=== PATIENT | female | born 1955 | race Caucasian/White ===

== ENCOUNTER 2017-03-28 19:27 | Emergency (ER) | payer MEDICARE ==
[~2017-03-28] VITALS: Ht 172.7 cm; Wt 98.0 kg
[~2017-03-28 19:27] MED LIST: ARICEPT10 MG PO; C 500 PO; CYMBALTA30 MG OR; DETROL LA4 MG PO; LORAZEPAM0.5 MG PO; LUNESTA3 MG OR; METHYLIN ER10 MG PO
[2017-03-28] MEDS ORDERED: REMERON15 MG PO (20:04)
[2017-03-28] MEDS ORDERED: LORTAB 10-325 M1 TAB PO (20:54)
[2017-03-28 21:13] VITALS: BP 127/60
== END 2017-03-28 21:13 | disposition home or self-care (01) ==
LOC: ED 19:27
PROC: 2W3DX1Z Immobilization of Left Lower Arm using Splint (ICD-10-PCS; principal; 2017-03-28)
DX: S52.502A Unspecified fracture of the lower end of left radius, initial encounter for closed fracture (principal); S00.81XA Abrasion of other part of head, initial encounter; S80.212A Abrasion, left knee, initial encounter; S80.211A Abrasion, right knee, initial encounter; S60.812A Abrasion of left wrist, initial encounter; W18.30XA Fall on same level, unspecified, initial encounter; Y93.K1 Activity, walking an animal; Y92.239 Unspecified place in hospital as the place of occurrence of the external cause

== ENCOUNTER 2018-11-28 09:00 | Outpatient (RCR) | payer MEDICARE, MEDICAID ==
--- NOTE | 2018-11-02 13:50 | NUR ---
Pt. in for IOP and Treatment Team. Pt. is clean and neat. Alert and oriented times 3. Affect is mildly bright. Mood is "good for the most part". Pt. denies any suicidal ideation. Pt. states she is taking Melatonin which helps her sleep. Pt. states she is eating better. Pt. states she has been off her thyroid medicine. Pt. states she didn't know she "is on the medicine for life". Kenroy Camargo APRN is requesting the Pt.'s TSH report. Program Nurse will follow up with the PCP. Pt. states she is "really benefiting from the program". Pt. states she is compliant with her medications. Pt. reports no changes in her medications. Pt. is to continue with the current treatment plan. Pt. is attending IOP 3 times a week with monthly 1:1. Will follow up in one month. Treatment team is completed.
[2018-11-05 12:40] VITALS: BP 118/62
[~2018-11-28 09:00] MED LIST changes: +D3-50 PO; +GNP MELATONIN MA5 MG PO; +LEVOTHYROXIN25 MC1 PO; +LORTAB 10-325 M1 TAB PO; +NATURE THROI PO; +REMERON15 MG PO; +ZOLOFT100 MG PO
== END 2018-11-29 23:59 | disposition still patient (30) ==
LOC: SLIP3 09:00
PROVIDERS: ATTEND Specialist
DX: F33.1 Major depressive disorder, recurrent, moderate (principal); F41.1 Generalized anxiety disorder

== ENCOUNTER 2019-08-28 19:41 | Emergency (ER) | payer MEDICARE ==
[~2019-08-28] VITALS: Ht 172.7 cm; Wt 82.7 kg
[~2019-08-28 19:41] MED LIST changes: +MEMANTINE HCL5 MG PO
[2019-08-28] MEDS ORDERED: ZOVIRAX52 TOP (20:54)
[2019-08-28] MEDS ORDERED: (None)3.5 GM OS (20:54)
[2019-08-28] MEDS ORDERED: VALTREX1 GM PO (20:54)
[2019-08-28] MEDS ORDERED: GENTAMICIN SULF5 ML OS (20:54)
[2019-08-28] MEDS ORDERED: FOSAMAX PLUS PO (21:03)
[2019-08-28 21:10] VITALS: BP 149/80
== END 2019-08-28 21:10 | disposition home or self-care (01) ==
LOC: ED 19:41
DX: B02.9 Zoster without complications (principal); F03.90 Unspecified dementia, unspecified severity, without behavioral disturbance, psychotic disturbance, mood disturbance, and anxiety

== ENCOUNTER 2021-01-18 11:25 | Observation (INO) | payer MEDICARE ==
[~2021-01-18] VITALS: Ht 172.7 cm; Wt 80.0 kg
[~2021-01-18 11:25] MED LIST changes: +(None)3.5 GM OS; +FOSAMAX PLUS PO; +GENTAMICIN SULF5 ML OS; +MEMANTINE HYDROC5 MG PO; +VALTREX1 GM PO; +VITAMI17 PO; +VITAMIN D PO; +ZOVIRAX52 TOP
[2021-01-18] MEDS ORDERED: DITROPAN5 MG/TA1 PO (11:43)
[2021-01-18] MEDS ORDERED: DIVALPROEX SOD250 MG PO (11:44)
[2021-01-18 11:58] LABS: HEMATOCRIT 40.7 % (37.0-47.0); HEMOGLOBIN 12.9 g/dl (12.0-16.0); IMMATURE GRANULOCYTES 0.6 % (0.0-5.0); MEAN CELL VOLUME 91.9 fL CALC (80.0-100.0); MEAN CORPUSCULAR HGB 29.1 pG CALC (26.0-32.0); MEAN CORPUSCULAR HGB CONC 31.7 g/dL CAL (32.0-36.0); NEUT# 4.31 thou/uL (2.00-7.15); RED BLOOD COUNT 4.43 mill/uL (4.20-5.60); RED CELL DISTRI WIDTH 14.1 % (11.5-15.5)
[2021-01-18 12:21] LABS: ALKALINE PHOSPHATASE 49 u/l (38-126); ANION GAP 9 (6-22 (CALC)); BILIRUBIN, TOTAL 0.5 mg/dL (0.0-1.4); BUN 22 mg/dL (8-23); BUN/CREATININE RATIO 25 (12-20 (CALC)); CARBON DIOXIDE 32 mmol/l (22-30); CHLORIDE 100 mmol/l (95-108); CREATININE 0.9 mg/dL (0.5-1.0); GFR > 60 ML/MIN (>=60 (CALC)); GFR FOR AFR.AMER. > 60 ML/MIN (>=60 (CALC)); POTASSIUM 4.1 mmol/l (3.5-5.1); PROTHROMBIN TIME 9.8 SECONDS (9.0-12.5); SGOT/AST 19 u/l (9-36); SODIUM 137 mmol/l (137-146)
[2021-01-18 12:44] LABS: URINE BILIRUBIN - DIPSTICK NEGATIVE (NEGATIVE); URINE BLOOD DIPSTICK NEGATIVE (NEGATIVE); URINE COLOR YELLOW; URINE GLUCOSE - DIPSTICK NEGATIVE (NEGATIVE); URINE KETONE TRACE mg/dL (NEGATIVE); URINE LEUK ESTERASE NEGATIVE (NEGATIVE); URINE NITRITE - DIPSTICK NEGATIVE (Negative); URINE PROTEIN - DIPSTICK NEGATIVE (NEG-TRACE); URINE UROBILINOGEN - DIPSTICK 0.2 E.U./dL (0.2)
[2021-01-18 14:54] VITALS: BP 119/70
[2021-01-18 19:00] VITALS: BP 120/64
[2021-01-19] VITALS: BP 129/69
[2021-01-19 04:30] VITALS: BP 130/72
[2021-01-19 05:36] LABS: HEMATOCRIT 37.6 % (37.0-47.0); HEMOGLOBIN 11.8 g/dl (12.0-16.0); MEAN CELL VOLUME 92.6 fL CALC (80.0-100.0); MEAN CORPUSCULAR HGB 29.1 pG CALC (26.0-32.0); MEAN CORPUSCULAR HGB CONC 31.4 g/dL CAL (32.0-36.0); RED BLOOD COUNT 4.06 mill/uL (4.20-5.60); RED CELL DISTRI WIDTH 14.2 % (11.5-15.5)
[2021-01-19 05:58] LABS: ANION GAP 9 (6-22 (CALC)); BUN 19 mg/dL (8-23); BUN/CREATININE RATIO 24 (12-20 (CALC)); CALCULATED LDLCHOLESTEROL 125 mg/dL (62-129 (CALC)); CARBON DIOXIDE 27 mmol/l (22-30); CHLORIDE 105 mmol/l (95-108); CHOLESTEROL HDL RATIO 3.4 (<4.4 (CALC)); CREATININE 0.8 mg/dL (0.5-1.0); GFR > 60 ML/MIN (>=60 (CALC)); GFR FOR AFR.AMER. > 60 ML/MIN (>=60 (CALC)); HDL CHOLESTEROL 59 mg/dL (>=40); MAGNESIUM 1.9 mg/dL (1.6-2.3); POTASSIUM 4.3 mmol/l (3.5-5.1); SODIUM 136 mmol/l (137-146); TOTAL CHOLESTEROL 205 mg/dl (0-199); TOTAL TRIGLYCERIDES 104 mg/dl (30-149); VLDL CHOLESTROL 21 mg/dl (1-41 (CALC))
[2021-01-19 07:22] VITALS: BP 160/76
[2021-01-19 10:55] VITALS: BP 110/65
[2021-01-19 15:22] VITALS: BP 123/71
== END 2021-01-19 16:48 ==
LOC: ED 11:25 → ED-I 12:59 → ED 13:14 → MS2 13:15
PROVIDERS: Family Medicine; Nurse Practitioner; ADMIT Internal Medicine; ATTEND Internal Medicine
DX: R53.1 Weakness (principal); R26.89 Other abnormalities of gait and mobility; S52.501D Unspecified fracture of the lower end of right radius, subsequent encounter for closed fracture with routine healing; S00.93XD Contusion of unspecified part of head, subsequent encounter; R62.7 Adult failure to thrive; F03.90 Unspecified dementia, unspecified severity, without behavioral disturbance, psychotic disturbance, mood disturbance, and anxiety; M25.561 Pain in right knee; M79.651 Pain in right thigh; M21.371 Foot drop, right foot; M81.0 Age-related osteoporosis without current pathological fracture; W01.0XXD Fall on same level from slipping, tripping and stumbling without subsequent striking against object, subsequent encounter; Z68.26 Body mass index [BMI] 26.0-26.9, adult; Z91.81 History of falling; Z86.79 Personal history of other diseases of the circulatory system; Z98.2 Presence of cerebrospinal fluid drainage device; Z20.822 Contact with and (suspected) exposure to COVID-19
CPT/HCPCS: G0378

== ENCOUNTER 2022-02-23 14:20 | Emergency (ER) | payer MEDICARE, OTHER ==
[~2022-02-23] VITALS: Ht 172.7 cm; Wt 86.0 kg
[2022-02-23] VITALS (9 sets, daily range): BP systolic 105–141; BP diastolic 46–82
[~2022-02-23 14:20] MED LIST changes: +DITROPAN5 MG/TA1 PO; +DIVALPROEX SOD250 MG PO
[2022-02-23] MEDS ORDERED: TOLTERODINE TART4 MG PO (14:50)
[2022-02-23 15:22] LABS: HEMATOCRIT 38.8 % (37.0-47.0); HEMOGLOBIN 12.4 g/dl (12.0-16.0); IMMATURE GRANULOCYTES 0.8 % (0.0-5.0); MEAN CELL VOLUME 89.8 fL CALC (80.0-100.0); MEAN CORPUSCULAR HGB 28.7 pG CALC (26.0-32.0); NEUT# 6.96 thou/uL (2.00-7.15); RED BLOOD COUNT 4.32 mill/uL (4.20-5.60); RED CELL DISTRI WIDTH 14.3 % (11.5-15.5)
[2022-02-23 15:44] LABS: ALBUMIN 4.1 g/dL (3.2-5.0); ALKALINE PHOSPHATASE 58 u/l (38-126); ANION GAP 14 (6-22 (CALC)); BILIRUBIN, TOTAL 0.2 mg/dL (0.0-1.4); BUN 20 mg/dL (8-23); BUN/CREATININE RATIO 21 (12-20 (CALC)); CARBON DIOXIDE 26 mmol/l (22-30); CHLORIDE 101 mmol/l (95-108); GFR 55 ML/MIN (>=60 (CALC)); GFR FOR AFR.AMER. > 60 ML/MIN (>=60 (CALC)); SGOT/AST 31 u/l (9-36); SODIUM 137 mmol/l (137-146); TOTAL PROTEIN 7.6 g/dL (6.3-8.2)
[2022-02-23 16:56] LABS: URINE BILIRUBIN - DIPSTICK NEGATIVE (NEGATIVE); URINE BLOOD DIPSTICK LARGE (NEGATIVE); URINE COLOR YELLOW; URINE GLUCOSE - DIPSTICK NEGATIVE (NEGATIVE); URINE KETONE 15 mg/dL (NEGATIVE); URINE LEUK ESTERASE NEGATIVE (NEGATIVE); URINE PH 5.5 (4.5-8.0); URINE PROTEIN - DIPSTICK TRACE mg/dL (NEG-TRACE); URINE SPECIFIC GRAVITY >=1.030; URINE UROBILINOGEN - DIPSTICK 0.2 E.U./dL (0.2)
[2022-02-23 16:59] LABS: URINE NITRITE - DIPSTICK NEGATIVE (Negative)
[2022-02-23 17:05] LABS: URINE AMORPH SEDIMENT MODERATE hpf (NONE-FEW); URINE SQUAMOUS EPITHELIAL CELL FEW EPI/hpf (0-FEW); URINE WBC 0-2 WBC/hpf (0-5)
== END 2022-02-23 17:50 | disposition home or self-care (01) ==
LOC: ED 14:20
PROVIDERS: Family Medicine
DX: Z04.3 Encounter for examination and observation following other accident (principal); F03.90 Unspecified dementia, unspecified severity, without behavioral disturbance, psychotic disturbance, mood disturbance, and anxiety; I67.1 Cerebral aneurysm, nonruptured; Z98.2 Presence of cerebrospinal fluid drainage device

== ENCOUNTER 2022-03-18 20:20 | Emergency (ER) | payer MEDICARE, OTHER ==
[2022-03-18] VITALS (10 sets, daily range): BP systolic 123–141; BP diastolic 43–76
[~2022-03-18] VITALS: Ht 172.7 cm; Wt 88.6 kg
[~2022-03-18 20:20] MED LIST changes: +TOLTERODINE TART4 MG PO
[2022-03-18 21:05] LABS: HEMATOCRIT 37.6 % (37.0-47.0); HEMOGLOBIN 11.8 g/dl (12.0-16.0); IMMATURE GRANULOCYTES 0.2 % (0.0-5.0); MEAN CELL VOLUME 90.2 fL CALC (80.0-100.0); MEAN CORPUSCULAR HGB 28.3 pG CALC (26.0-32.0); MEAN CORPUSCULAR HGB CONC 31.4 g/dL CAL (32.0-36.0); NEUT# 5.88 thou/uL (2.00-7.15); RED BLOOD COUNT 4.17 mill/uL (4.20-5.60); RED CELL DISTRI WIDTH 14.4 % (11.5-15.5)
[2022-03-18 21:22] LABS: ALBUMIN 3.9 g/dL (3.2-5.0); ALKALINE PHOSPHATASE 50 u/l (38-126); ANION GAP 12 (6-22 (CALC)); BUN 16 mg/dL (8-23); BUN/CREATININE RATIO 15 (12-20 (CALC)); CARBON DIOXIDE 26 mmol/l (22-30); CHLORIDE 97 mmol/l (95-108); CREATININE 1.1 mg/dL (0.5-1.0); GFR FOR AFR.AMER. 60 ML/MIN (>=60 (CALC)); GFR OTHER RACES 50 ML/MIN (>=60 (CALC)); POTASSIUM 4.1 mmol/l (3.5-5.1); SGOT/AST 18 u/l (9-36); SODIUM 131 mmol/l (137-146); TOTAL PROTEIN 7.1 g/dL (6.3-8.2)
[2022-03-18 21:25] LABS: BILIRUBIN, TOTAL 0.3 mg/dL (0.0-1.4)
[2022-03-18 21:33] LABS: MYOGLOBIN 65 ng/mL (0 - 62)
[2022-03-19 00:01] VITALS: BP 128/72
[2022-03-19 00:25] VITALS: BP 128/72
== END 2022-03-19 00:30 | disposition home or self-care (01) ==
LOC: ED 20:20
PROVIDERS: Family Medicine
DX: R53.1 Weakness (principal); F03.90 Unspecified dementia, unspecified severity, without behavioral disturbance, psychotic disturbance, mood disturbance, and anxiety

== ENCOUNTER 2022-11-25 21:09 | Emergency (ER) | payer MEDICARE, OTHER ==
[~2022-11-25] VITALS: Ht 172.7 cm; Wt 84.3 kg
[2022-11-25 21:15] VITALS: BP 133/64
[2022-11-25 21:31] VITALS: BP 141/61
[2022-11-25 21:44] LABS: BASO% 0.2 % (0-3); EOS% 0.2 % (0-8); HEMATOCRIT 41.1 % (37.0-47.0); IMMATURE GRANULOCYTES 0.6 % (0.0-5.0); LYMPH% 7.4 % (15-41); MEAN CELL VOLUME 90.3 fL CALC (80.0-100.0); MEAN CORPUSCULAR HGB 28.6 pG CALC (26.0-32.0); MEAN CORPUSCULAR HGB CONC 31.6 g/dL CAL (32.0-36.0); NEUT# 7.13 thou/uL (2.00-7.15); NEUT% 81.6 % (42-76); RED BLOOD COUNT 4.55 mill/uL (4.20-5.60); RED CELL DISTRI WIDTH 14.4 % (11.5-15.5)
[2022-11-25 21:45] VITALS: BP 141/50
[2022-11-25 21:56] LABS: ALBUMIN 4.1 g/dL (3.2-5.0); ALKALINE PHOSPHATASE 40 u/l (38-126); ANION GAP 11 (6-22 (CALC)); BILIRUBIN, TOTAL 0.3 mg/dL (0.02-1.3); BUN 16 mg/dL (8-23); BUN/CREATININE RATIO 16 (12-20 (CALC)); CARBON DIOXIDE 27 mmol/l (22-30); CHLORIDE 100 mmol/l (95-108); GFR FOR AFR.AMER. > 60 ML/MIN (>=60 (CALC)); GFR OTHER RACES 55 ML/MIN (>=60 (CALC)); SODIUM 134 mmol/l (137-146); TOTAL PROTEIN 7.1 g/dL (6.3-8.2)
[2022-11-25 21:57] LABS: SGOT/AST 34 u/l (9-36)
[2022-11-26 00:07] LABS: URINE BLOOD DIPSTICK SMALL (NEGATIVE); URINE COLOR YELLOW; URINE GLUCOSE - DIPSTICK NEGATIVE (NEGATIVE); URINE KETONE 15 mg/dL (NEGATIVE); URINE LEUK ESTERASE NEGATIVE (NEGATIVE); URINE PROTEIN - DIPSTICK TRACE mg/dL (NEG-TRACE); URINE SPECIFIC GRAVITY >=1.030; URINE UROBILINOGEN - DIPSTICK 0.2 E.U./dL (0.2)
[2022-11-26 00:08] LABS: URINE BILIRUBIN - DIPSTICK MODERATE (NEGATIVE); URINE NITRITE - DIPSTICK NEGATIVE (Negative)
[2022-11-26 00:09] LABS: URINE MUCUS MANY hpf (NONE-FEW); URINE SQUAMOUS EPITHELIAL CELL FEW EPI/hpf (0-FEW)
[2022-11-26 01:02] VITALS: BP 141/50
== END 2022-11-26 01:27 | disposition home or self-care (01) ==
LOC: ED 21:09
PROVIDERS: Family Medicine
DX: S00.83XA Contusion of other part of head, initial encounter (principal); S00.81XA Abrasion of other part of head, initial encounter; F03.90 Unspecified dementia, unspecified severity, without behavioral disturbance, psychotic disturbance, mood disturbance, and anxiety; M21.371 Foot drop, right foot; W01.0XXA Fall on same level from slipping, tripping and stumbling without subsequent striking against object, initial encounter; Y92.099 Unspecified place in other non-institutional residence as the place of occurrence of the external cause; Z98.2 Presence of cerebrospinal fluid drainage device

== ENCOUNTER 2023-02-20 15:18 | Observation (INO) | payer MEDICARE, OTHER ==
[~2023-02-20] VITALS: Ht 172.7 cm; Wt 81.6 kg
[2023-02-20] VITALS (14 sets, daily range): BP systolic 104–152; BP diastolic 47–118
[2023-02-20 15:47] LABS: BASO% 0.2 % (0-3); EOS% 0.7 % (0-8); HEMATOCRIT 40.5 % (37.0-47.0); IMMATURE GRANULOCYTES 0.4 % (0.0-5.0); LYMPH% 18.5 % (15-41); MEAN CORPUSCULAR HGB 28.5 pG CALC (26.0-32.0); MEAN CORPUSCULAR HGB CONC 29.4 g/dL CAL (32.0-36.0); MONO% 9.4 % (2-13); NEUT# 8.01 thou/uL (2.00-7.15); NEUT% 70.8 % (42-76); RED BLOOD COUNT 4.18 mill/uL (4.20-5.60); RED CELL DISTRI WIDTH 15.2 % (11.5-15.5)
[2023-02-20 15:48] LABS: HEMOGLOBIN 11.9 g/dl (12.0-16.0); MEAN CELL VOLUME 96.9 fL CALC (80.0-100.0)
[2023-02-20] MEDS ORDERED: LEVOTHYROXIN50 MCG PO (15:59)
[2023-02-20 16:00] LABS: URINE BILIRUBIN - DIPSTICK NEGATIVE (NEGATIVE); URINE BLOOD DIPSTICK TRACE-INTACT (NEGATIVE); URINE COLOR YELLOW; URINE GLUCOSE - DIPSTICK NEGATIVE (NEGATIVE); URINE KETONE TRACE mg/dL (NEGATIVE); URINE PH 6.5 (4.5-8.0); URINE PROTEIN - DIPSTICK NEGATIVE (NEG-TRACE); URINE UROBILINOGEN - DIPSTICK 0.2 E.U./dL (0.2)
[2023-02-20] MEDS ORDERED: PREDNISONE5 MG PO (16:01)
[2023-02-20 16:03] LABS: URINE LEUK ESTERASE LARGE (NEGATIVE); URINE NITRITE - DIPSTICK POSITIVE (Negative)
[2023-02-20 16:32] LABS: ALBUMIN 3.8 g/dL (3.2-5.0); ALKALINE PHOSPHATASE 56 u/l (38-126); ANION GAP 11 (6-22 (CALC)); BILIRUBIN, TOTAL 0.3 mg/dL (0.02-1.3); BUN 15 mg/dL (8-23); BUN/CREATININE RATIO 18 (12-20 (CALC)); CARBON DIOXIDE 27 mmol/l (22-30); CHLORIDE 102 mmol/l (95-108); CREATININE 0.8 mg/dL (0.5-1.0); GFR FOR AFR.AMER. > 60 ML/MIN (>=60 (CALC)); GFR OTHER RACES > 60 ML/MIN (>=60 (CALC)); LIPASE 52 u/l (23-300); SGOT/AST 18 u/l (9-36); SODIUM 136 mmol/l (137-146)
[2023-02-20 16:41] LABS: URINE BACTERIA FEW hpf; URINE SQUAMOUS EPITHELIAL CELL FEW EPI/hpf (0-FEW); URINE WBC 50-100 WBC/hpf (0-5)
[2023-02-21 04:40] VITALS: BP 113/47
[2023-02-21 06:40] VITALS: BP 121/59
[2023-02-21 07:46] LABS: HEMATOCRIT 35.6 % (37.0-47.0); HEMOGLOBIN 11.1 g/dl (12.0-16.0); MEAN CELL VOLUME 91.3 fL CALC (80.0-100.0); MEAN CORPUSCULAR HGB 28.5 pG CALC (26.0-32.0); MEAN CORPUSCULAR HGB CONC 31.2 g/dL CAL (32.0-36.0); RED BLOOD COUNT 3.9 mill/uL (4.20-5.60)
[2023-02-21 08:00] VITALS: BP 121/59
[2023-02-21 08:05] LABS: ALBUMIN 3.1 g/dL (3.2-5.0); ALKALINE PHOSPHATASE 48 u/l (38-126); ANION GAP 9 (6-22 (CALC)); BILIRUBIN, TOTAL 0.2 mg/dL (0.02-1.3); BUN 10 mg/dL (8-23); BUN/CREATININE RATIO 13 (12-20 (CALC)); CARBON DIOXIDE 29 mmol/l (22-30); CHLORIDE 105 mmol/l (95-108); CREATININE 0.8 mg/dL (0.5-1.0); GFR FOR AFR.AMER. > 60 ML/MIN (>=60 (CALC)); GFR OTHER RACES > 60 ML/MIN (>=60 (CALC)); MAGNESIUM 2.1 mg/dL (1.6-2.3); POTASSIUM 4.1 mmol/l (3.5-5.1); SGOT/AST 14 u/l (9-36); SODIUM 139 mmol/l (137-146)
[2023-02-21 10:20] VITALS: BP 114/50
[2023-02-21 11:07] VITALS: BP 114/50
[2023-02-21] MEDS ORDERED: ZITHROMAX250 MG PO (11:07)
[2023-02-21] MEDS ORDERED: OMNICEF300 MG PO (11:07)
[2023-02-21 12:40] VITALS: BP 114/50
== END 2023-02-21 13:22 ==
LOC: ED 15:18 → MS2 19:49
PROVIDERS: Nurse Practitioner; ADMIT Internal Medicine; ATTEND Internal Medicine
DX: J18.9 Pneumonia, unspecified organism (principal); N39.0 Urinary tract infection, site not specified; F03.90 Unspecified dementia, unspecified severity, without behavioral disturbance, psychotic disturbance, mood disturbance, and anxiety; I67.1 Cerebral aneurysm, nonruptured; E03.9 Hypothyroidism, unspecified; G40.909 Epilepsy, unspecified, not intractable, without status epilepticus; B96.20 Unspecified Escherichia coli [E. coli] as the cause of diseases classified elsewhere; Z86.73 Personal history of transient ischemic attack (TIA), and cerebral infarction without residual deficits; Z98.2 Presence of cerebrospinal fluid drainage device
CPT/HCPCS: Q9967

== ENCOUNTER 2023-04-21 09:09 | Inpatient (IN) | payer MEDICARE, OTHER ==
[~2023-04-21] VITALS: Ht 172.7 cm; Wt 71.9 kg
[2023-04-21] VITALS (20 sets, daily range): BP systolic 79–158; BP diastolic 35–74
[~2023-04-21 09:09] MED LIST changes: +DITROPAN XL5 MG PO; -DITROPAN5 MG/TA1 PO; +LEVOTHYROXIN50 MCG PO; +OMNICEF300 MG PO; +PREDNISONE5 MG PO; +VITAMIN D-32000 UNI1 PO; +ZITHROMAX250 MG PO
--- NOTE | 2023-04-21 09:15 | NUR ---
PATIENT ARRIVED VIA EMS TO ROOM 3. NO COMPLAINTS AT THIS TIME.
[2023-04-21 09:47] LABS: BASO% 0.1 % (0-3); HEMATOCRIT 45.1 % (37.0-47.0); HEMOGLOBIN 13.9 g/dl (12.0-16.0); IMMATURE GRANULOCYTES 0.3 % (0.0-5.0); MEAN CELL VOLUME 90.4 fL CALC (80.0-100.0); MEAN CORPUSCULAR HGB 27.9 pG CALC (26.0-32.0); MEAN CORPUSCULAR HGB CONC 30.8 g/dL CAL (32.0-36.0); MONO% 1.7 % (2-13); NEUT# 14.94 thou/uL (2.00-7.15); NEUT% 93.9 % (42-76); RED BLOOD COUNT 4.99 mill/uL (4.20-5.60); RED CELL DISTRI WIDTH 14.8 % (11.5-15.5)
[2023-04-21 09:55] LABS: ALBUMIN 3.5 g/dL (3.2-5.0); ALKALINE PHOSPHATASE 41 u/l (38-126); ANION GAP 11 (6-22 (CALC)); BILIRUBIN, TOTAL 0.7 mg/dL (0.02-1.3); BUN 19 mg/dL (8-23); BUN/CREATININE RATIO 20 (12-20 (CALC)); CARBON DIOXIDE 24 mmol/l (22-30); CHLORIDE 107 mmol/l (95-108); CREATININE 0.9 mg/dL (0.5-1.0); GFR FOR AFR.AMER. > 60 ML/MIN (>=60 (CALC)); GFR OTHER RACES > 60 ML/MIN (>=60 (CALC)); MAGNESIUM 1.7 mg/dL (1.6-2.3); SODIUM 138 mmol/l (137-146); TOTAL PROTEIN 6.3 g/dL (6.3-8.2)
[2023-04-21 09:57] LABS: SGOT/AST 26 u/l (9-36)
[2023-04-21 11:17] LABS: URINE COLOR YELLOW; URINE GLUCOSE - DIPSTICK NEGATIVE (NEGATIVE)
[2023-04-21 11:18] LABS: URINE BILIRUBIN - DIPSTICK NEGATIVE (NEGATIVE); URINE BLOOD DIPSTICK LARGE (NEGATIVE); URINE KETONE 15 mg/dL (NEGATIVE); URINE LEUK ESTERASE LARGE (NEGATIVE); URINE NITRITE - DIPSTICK POSITIVE (Negative); URINE PH 5.5 (4.5-8.0); URINE PROTEIN - DIPSTICK >=300 mg/dL (NEG-TRACE); URINE SPECIFIC GRAVITY 1.025; URINE UROBILINOGEN - DIPSTICK 0.2 E.U./dL (0.2)
[2023-04-21 11:21] LABS: URINE BACTERIA MANY hpf; URINE WBC >100 WBC/hpf (0-5)
[2023-04-21 11:22] LABS: URINE SQUAMOUS EPITHELIAL CELL FEW EPI/hpf (0-FEW)
--- NOTE | 2023-04-21 11:30 | NUR ---
PT TAKEN TO CT SCAN
--- NOTE | 2023-04-21 11:37 | NUR ---
PT RETURNED FROM CT SCAN
--- NOTE | 2023-04-21 12:50 | NUR ---
PT REPORT GIVEN TO STEVE LANGSTON. PT TRANSPORTED TO [facility] ROOM 270.
--- NOTE | 2023-04-21 13:00 | NUR ---
PT ARRIVED TO MED SURG VIA STRETCHER, DAUGHTER IN LAW AT BEDSIDE. REPORT RECIEVED. PT IS ALERT AND OREINTED TO SELF ONLY; PT HAS HX OF DEMENTIA. PT HAS IV TO LEFT WRIST CLEAN AND INTACT WITH NS @ 100 ML/HR INFUSING. PT HAS PUREWICK ON, PLACED IN THE ER. LUNG SOUNDS CLEAR THROUGHOUT. ABD SOFT WITH BS ACTIVE. PT SKIN IS CLEAN AND INTACT. PT OREINTED TO ROOM AND CALL LIGHT. PT HAS ALL SAFETY MEASURES IN PLACE AND BED ALARM ON AT THIS TIME. PT HAS CALL LIGHT WITHIN REACH. WILL MONITOR PT.
--- NOTE | 2023-04-21 14:20 | NUR ---
WHEELER INSERTED 16FR, PT TOLERATED WELL. 1200 CLOUDY, YELLOW URINE IN BAG. URINE FOUL SMELLING. FLUID BOLUS ORDERED AND GIVEN. IBUPROFEN GIVEN FOR TEMP OF 99.8 AND SHAKING.
--- NOTE | 2023-04-21 16:08 | NUR ---
PT IN BED RESTING. WHEELER CONTINUES TO DRAIN CLOUDY, YELLOW URINE. NS @ 100 ML HR INFUSING. PT HAS CALL LIGHT [employer] REACH AND ALL SAFETY MEASURES IN PLACE AT THIS TIME.
[2023-04-22 05:04] VITALS: BP 97/45
[2023-04-22 05:05] LABS: BASO% 0.2 % (0-3); EOS% 0.1 % (0-8); IMMATURE GRANULOCYTES 0.8 % (0.0-5.0); MEAN CELL VOLUME 91.9 fL CALC (80.0-100.0); MEAN CORPUSCULAR HGB 28.3 pG CALC (26.0-32.0); MEAN CORPUSCULAR HGB CONC 30.9 g/dL CAL (32.0-36.0); MONO% 5.7 % (2-13); NEUT# 15.17 thou/uL (2.00-7.15); NEUT% 83.2 % (42-76); RED BLOOD COUNT 3.81 mill/uL (4.20-5.60); RED CELL DISTRI WIDTH 15.5 % (11.5-15.5)
[2023-04-22 05:12] LABS: HEMOGLOBIN 10.8 g/dl (12.0-16.0)
[2023-04-22 05:16] VITALS: BP 97/45
[2023-04-22 05:21] LABS: CREATININE 1.1 mg/dL (0.5-1.0); MAGNESIUM 1.7 mg/dL (1.6-2.3); POTASSIUM 3.9 mmol/l (3.5-5.1)
[2023-04-22 05:22] LABS: ALBUMIN 2.3 g/dL (3.2-5.0); BILIRUBIN, TOTAL 0.2 mg/dL (0.02-1.3); TOTAL PROTEIN 4.6 g/dL (6.3-8.2)
[2023-04-22 06:18] VITALS: BP 94/45
--- NOTE | 2023-04-22 07:00 | NUR ---
RECEIVED BEDSIDE REPORT FROM PM RN. PT RESTING IN BED WITH EYES CLOSED. ALL SAFETY MEASURES IN PLACE. VSS. NO NEEDS AT THIS TIME.
[2023-04-22 15:10] VITALS: BP 98/51
[2023-04-22 19:22] VITALS: BP 101/50
--- NOTE | 2023-04-22 20:15 | NUR ---
PATIENT RESTING IN BED AT THIS TIME-AWAKE ALERT AND ORIENTED TO PLACE AND TIME. PATIENT WITH NO COMPLAINTS AT THIS TIMEIVF NS PATENT AND INFUSING VIA LEFT WRIST AT 100CC/HR. SITE IS HEALTHY AT THIS TIME. WHEELER PATENT AND DRAINING YELLOW URINE. SAFETY PRECAUTIONS REINFORCED. CALL LIGHT IN REACH. WILL CONT TO MONITOR.
--- NOTE | 2023-04-22 22:54 | NUR ---
PATIENT RESTING IN BED WITH EYES CLOSED. RESPS ARE EVEN AND UNLABORED. IVF PATENT AND INFUSING VIA LEFT WRIST AT 100CC/HR. WHEELER PATENT AND DRAINING YELLOW URINE WITH SEDIMENT. CALL LIGHT IN REACH. WILL CONT TO MONITOR.
--- NOTE | 2023-04-23 01:27 | NUR ---
PATIENT RESTINGIN BED WITH EYESCLOSED. RESPS ARE EVEN AND UNLABORED. IVF PATENT AND INFUSING VIA LEFT WRIST SITE. CALL LIGHT IN REACH, WILL CONT TO MONITOR.
[2023-04-23 03:26] VITALS: BP 118/55
[2023-04-23 04:37] LABS: HEMATOCRIT 30.4 % (37.0-47.0); HEMOGLOBIN 9.2 g/dl (12.0-16.0); MEAN CELL VOLUME 92.1 fL CALC (80.0-100.0); MEAN CORPUSCULAR HGB 27.9 pG CALC (26.0-32.0); MEAN CORPUSCULAR HGB CONC 30.3 g/dL CAL (32.0-36.0); RED BLOOD COUNT 3.3 mill/uL (4.20-5.60); RED CELL DISTRI WIDTH 15.8 % (11.5-15.5)
[2023-04-23 04:47] LABS: ALBUMIN 2.2 g/dL (3.2-5.0); ALKALINE PHOSPHATASE 74 u/l (38-126); ANION GAP 6 (6-22 (CALC)); BILIRUBIN, TOTAL 0.2 mg/dL (0.02-1.3); BUN 20 mg/dL (8-23); BUN/CREATININE RATIO 26 (12-20 (CALC)); CARBON DIOXIDE 23 mmol/l (22-30); CHLORIDE 114 mmol/l (95-108); CREATININE 0.8 mg/dL (0.5-1.0); GFR FOR AFR.AMER. > 60 ML/MIN (>=60 (CALC)); GFR OTHER RACES > 60 ML/MIN (>=60 (CALC)); MAGNESIUM 1.8 mg/dL (1.6-2.3); SGOT/AST 24 u/l (9-36); SODIUM 140 mmol/l (137-146); TOTAL PROTEIN 4.7 g/dL (6.3-8.2)
[2023-04-23 04:55] LABS: POTASSIUM 3.1 mmol/l (3.5-5.1)
[2023-04-23 06:15] VITALS: BP 110/59
--- NOTE | 2023-04-23 07:18 | NUR ---
RECEIVED BEDSIDE REPORT FROM KIAN BROCK. PT RESTING IN BED WITH EYES CLOSED. ALL SAFETY MEASURES IN PLACE. VSS. NO NEEDS AT THIS TIME.
[2023-04-23 15:22] VITALS: BP 147/69
[2023-04-23 19:10] VITALS: BP 113/55
--- NOTE | 2023-04-23 20:00 | NUR ---
RECEIVED REPORT FROM NURSE PRABHJOT, PATIENT RESTING IN BED, PATINET ALERT ORINTED WITH CONFSUION NOTED, PATIENT DENIES PAIN OR DISCOMFORTS AT THIS TIME, PATIENT BE PADDED, PATINET INDWELLING WHEELER CATHETER NDRAINING YELLOW COLORED URINE SEDIMENTS NOTED, PATIENT ON BED ALARM CALL LIGHT IN RECAH.
--- NOTE | 2023-04-24 01:18 | NUR ---
PATIENT TELEMETRY ORDER, TELE #[address]
--- NOTE | 2023-04-24 04:02 | NUR ---
PATIENT RESTING IN BED, WITH EYES CLOSED, NOT IN DSITRESS, BREATHING EVEN UNLABORED CALL LIGHT IN REACH, BED ALARM IN PLACE.
[2023-04-24 04:44] VITALS: BP 148/63
[2023-04-24 04:51] LABS: HEMATOCRIT 33.7 % (37.0-47.0); HEMOGLOBIN 10.5 g/dl (12.0-16.0); MEAN CELL VOLUME 91.6 fL CALC (80.0-100.0); MEAN CORPUSCULAR HGB 28.5 pG CALC (26.0-32.0); MEAN CORPUSCULAR HGB CONC 31.2 g/dL CAL (32.0-36.0); RED BLOOD COUNT 3.68 mill/uL (4.20-5.60); RED CELL DISTRI WIDTH 15.7 % (11.5-15.5)
[2023-04-24 05:07] LABS: ALBUMIN 2.4 g/dL (3.2-5.0); ALKALINE PHOSPHATASE 79 u/l (38-126); ANION GAP 7 (6-22 (CALC)); BUN 16 mg/dL (8-23); BUN/CREATININE RATIO 23 (12-20 (CALC)); CARBON DIOXIDE 22 mmol/l (22-30); CHLORIDE 115 mmol/l (95-108); CREATININE 0.7 mg/dL (0.5-1.0); GFR FOR AFR.AMER. > 60 ML/MIN (>=60 (CALC)); GFR OTHER RACES > 60 ML/MIN (>=60 (CALC)); MAGNESIUM 1.9 mg/dL (1.6-2.3); POTASSIUM 3.6 mmol/l (3.5-5.1); SGOT/AST 17 u/l (9-36); SODIUM 140 mmol/l (137-146); TOTAL PROTEIN 5.1 g/dL (6.3-8.2)
[2023-04-24 05:16] LABS: BILIRUBIN, TOTAL 0.3 mg/dL (0.02-1.3)
[2023-04-24 08:00] VITALS: BP 145/59
--- NOTE | 2023-04-24 08:00 | NUR ---
PT IN BED WITH HOB UP ALERT AND ORIENTED TO SELF ONLY; PT HAS NO C/O PAIN AT THIS TIME. TELE ON WITH ALL LEADS ATTACHED. PT HAS IV TO R WRIST CLEAN AND INTACT WITH NS @ 10 ML/HR INFUSING. PT HAS WHEELER INTACT DRAINING CLOUDY, YELLOW URINE. PT LUNG SOUNDS CLEAR. ABD SOFT WITH BS ACTIVE. PT HAS CALL LIGHT WITHIN REACH AND ALL SAFETY MEASURES IN PLACE AT THIS TIME.
[2023-04-24] MEDS ORDERED: CIPROFLOXACN500 MG PO (11:51)
--- NOTE | 2023-04-24 12:00 | NUR ---
PT REPOSITIONED IN BED TO [facility] FOR LUNCH. PT IS ALERT AND HAS NO C/O PAIN AT THIS TIME. PT HAS NO CHANGE IN SATUS AT THIS TIME. PT HAS CALL LIGHT WITHIN REACH.
[2023-04-24 12:39] VITALS: BP 136/55
--- NOTE | 2023-04-24 14:11 | NUR ---
Discharge instructions given. Patient verbalizes understanding of same. Discharged in stable condition via Wheelchair to [facility] with *Other. All belongings sent with pt.
== END 2023-04-24 14:05 | disposition home health service (06) | DRG 871 ==
LOC: ED 09:09 → MS2 11:51
PROVIDERS: Family Medicine; Nurse Practitioner Family; ADMIT Internal Medicine; ATTEND Internal Medicine
PROC: 0T9B70Z Drainage of Bladder with Drainage Device, Via Natural or Artificial Opening (ICD-10-PCS; principal; 2023-04-21)
DX: A41.9 Sepsis, unspecified organism (principal); G93.41 Metabolic encephalopathy; N39.0 Urinary tract infection, site not specified; N13.30 Unspecified hydronephrosis; N17.9 Acute kidney failure, unspecified; R65.20 Severe sepsis without septic shock; I95.9 Hypotension, unspecified; R33.9 Retention of urine, unspecified; E87.6 Hypokalemia; G30.0 Alzheimer's disease with early onset; F02.80 Dementia in other diseases classified elsewhere, unspecified severity, without behavioral disturbance, psychotic disturbance, mood disturbance, and anxiety; M35.3 Polymyalgia rheumatica; E03.9 Hypothyroidism, unspecified; G40.909 Epilepsy, unspecified, not intractable, without status epilepticus; B96.89 Other specified bacterial agents as the cause of diseases classified elsewhere; Z98.2 Presence of cerebrospinal fluid drainage device; Z87.440 Personal history of urinary (tract) infections
CPT/HCPCS: J1650; Q9967

== ENCOUNTER 2023-05-24 16:22 | Emergency (ER) | payer MEDICARE, OTHER ==
[~2023-05-24] VITALS: Ht 172.7 cm; Wt 72.6 kg
[~2023-05-24 16:22] MED LIST changes: +CIPROFLOXACN500 MG PO
[2023-05-24 16:30] VITALS: BP 140/74
[2023-05-24 16:46] VITALS: BP 149/76
[2023-05-24 17:16] VITALS: BP 149/73
[2023-05-24 17:31] VITALS: BP 149/96
[2023-05-24 17:46] VITALS: BP 96/70
[2023-05-24 17:50] VITALS: BP 96/70
== END 2023-05-24 19:05 | disposition home or self-care (01) ==
LOC: ED 16:22
DX: M54.50 Low back pain, unspecified (principal); G40.909 Epilepsy, unspecified, not intractable, without status epilepticus; F03.90 Unspecified dementia, unspecified severity, without behavioral disturbance, psychotic disturbance, mood disturbance, and anxiety; Z91.81 History of falling